=== PATIENT | female | born 1980 | race Hispanic/Latino ===

== ENCOUNTER 2017-11-06 20:00 | Emergency (ER) | payer BC ==
[~2017-11-06] VITALS: Ht 160 cm; Wt 86.2 kg
[2017-11-06] MEDS ORDERED: KETOROLAC TROMETHAMINE 30 MG/ML VIAL IV STA (20:47)
--- NOTE | 2017-11-06 21:43 | Diagnostic Imaging Report ---
Exam: AP view of the chest Indication: Left upper quadrant pain with shortness of breath Comparison: None Findings: The lungs are clear. Normal appearance of the heart and bones. Surgical clips right upper and left upper quadrants of the abdomen. Impression: Normal chest x-ray. Signed by: Dr. Sonya Wick M.D. on 11/06/2017 9:39 PM
[2017-11-06] MEDS ORDERED: MORPHINE SULFATE 2 MG/ML SYR IV STA (22:03)
[2017-11-06] MEDS ORDERED: HYDROCODONE/APAP 5MG-325MG TAB PO ONE (22:15)
[2017-11-06] MEDS ORDERED: FENTANYL CITRATE/PF 100MCG/2 ML INJ IV ONE (23:15)
== END 2017-11-07 00:15 | disposition home or self-care (01) ==
LOC: FSED 20:00
DX: R07.89 Other chest pain (principal); R06.00 Dyspnea, unspecified
CPT/HCPCS: 71045; 80053; 81003; 81025; 82553; 84484; 85025; 85379; 99284; J1885; J2270

== ENCOUNTER 2018-08-28 22:36 | Emergency (ER) | payer BC, OTHER ==
[~2018-08-28] VITALS: Ht 160 cm; Wt 86.2 kg
--- OUTSIDE RECORDS SUMMARY | 2018-08-28 22:40 | XMS REPORT ---
Author Author Wilmer Gonzalez Organization [employer] Address Unknown Phone Unavailable Care Team Providers Care Preparer Name Role Phone Wilmer Gonzalez CP Unavailable Allergies No Known Allergies Problems Problem Type Condition Code Onset Dates Condition Status Problem Rheumatoid factor positive R76.8 Active Problem Joint pain M25.50 Active Problem Vitamin D deficiency E55.9 Active Medications No Known Medications Results No Known Results Summary Purpose [employer] Submission
--- OUTSIDE RECORDS SUMMARY | 2018-08-28 22:40 | XMS REPORT | Continuity of Care Document ---
Author Author [employer] Address Unknown Phone Unavailable Care Team Providers Care Continuous Crusher Operator Name Role Phone [employer] Information [employer] Unavailable Unavailable Problems Problem Status Onset Date Classification Date Reported Comments Source Rheumatoid factor positive Active Problem 06/01/2018 Abe Gonzalez Joint pain Active Problem 06/01/2018 Abe Gonzalez Vitamin D deficiency Active Problem 06/01/2018 Abe Gonzalez Medications Medication Details Route Status Patient Instructions Ordering Provider Order Date Source Ergocalciferol 1 capsule Orally Active 94690 UNIT Orally Once a week Gwendolyn 05/28/2018 Abe Gonzalez Meloxicam 1 tablet Orally Active 15 MG Orally Once a day Gwendolyn 05/28/2018 Abe Gonzalez Allergies, Adverse Reactions, Alerts Substance Category Reaction Severity Reaction type Status Date Reported Comments Source Morphine ITCH Intermediate Allergy to Substance Active 11/06/2017 [facility] tylenol-codiene Adverse Reaction itching Adverse Reaction Active 05/28/2018 Abe Gonzalez Immunizations No Data Provided for This Section Results No Data Provided for This Section Pathology Reports No Data Provided for This Section Diagnostic Reports No Data Provided for This Section Consultation Notes No Data Provided for This Section Discharge Summaries No Data Provided for This Section History and Physicals No Data Provided for This Section Vital Signs Vital Sign Value Date Comments Source Weight 204.1 05/28/2018 Abe Gonzalez Height 63 05/28/2018 Abe Gonzalez Temperature Oral (F) 97.1 F 05/28/2018 Abe Gonzalez Heart Rate 76 05/28/2018 Abe Gonzalez Diastolic (mm Hg) 80 05/28/2018 Abe Gonzalez Systolic (mm Hg) 122 05/28/2018 Abe Gonzalez Encounters Location Location Details Encounter Type Encounter Number Reason For Visit Attending Provider ADM Date DC Date Status Source Departed Emergency Room [id number] IMMANUEL LUO MD 11/06/2017 11/07/2017 [facility] Procedures No Data Provided for This Section Assessment and Plan No Data Provided for This Section Plan of Care Plan of Care Date Source Discharge Date 11/07/17 12:15am Disposition HOME, SELF-CARE Condition at Discharge Stable Instructions/Education Provided Chest Pain - Chest Wall Forms Provided Work/School Excuse Prescriptions See Medication Section Referrals CHAD HERNÁNDEZ MD Order Date: Call for an appointment Address: [address] [phone] Note: Follow up in 1 week Additional Instructions/Education Return to ER if you have worsening chest pain, worsening shortness of breath, fever, abdominal pain, vomiting 11/07/2017 [facility] Social History Social History Date Source Smoking Status Start Date Stop Date Never Smoker 11/07/2017 [facility] Family History No Data Provided for This Section Advance Directives Order Name Results Value Date Source Advance Directives Advance Directives Directive Response Recorded Date/Time Does the patient have an advance directive? No 07/28/14 12:19am If yes, is advance directive on file with [facility]? No 07/28/14 12:19am If not on file with [facility] will patient provide a copy? No 07/28/14 12:19am Do you have a Directive to Physician? No 11/06/17 10:40pm Do you have a Medical Power of [employer] Member Other Ranks? Yes 11/06/17 10:40pm Do you have an out of hospital Do Not Resuscitate Order? No 11/06/17 10:40pm Do you have any special needs we should be aware of? No 11/06/17 10:40pm Do you have a support person here with you today? No 11/06/17 10:40pm Did patient receive Notice of Privacy Practices? Yes 11/06/17 10:40pm Did patient receive patient rights and responsibilities? Yes 11/06/17 10:40pm 11/07/2017 [facility] Functional Status No Data Provided for This Section
--- OUTSIDE RECORDS SUMMARY | 2018-08-28 22:40 | XMS REPORT ---
Author Author Elliott Snow Organization [employer] Address Unknown Phone Unavailable Care Team Providers Care Cotton Gin Yard Supervisor Name Role Phone Elliott Snow CP Unavailable Allergies No Known Allergies Problems Problem Type Condition Code Onset Dates Condition Status Problem Rheumatoid factor positive R76.8 Active Problem Joint pain M25.50 Active Problem Vitamin D deficiency E55.9 Active Medications No Known Medications Results No Known Results Summary Purpose [employer] Submission
--- OUTSIDE RECORDS SUMMARY | 2018-08-28 22:40 | XMS REPORT ---
Author Author Elliott Snow [facility] [employer] Address Unknown Phone Unavailable Care Team Providers Care [place] Name Role Phone Elliott Snow CP Unavailable Allergies, Adverse Reactions, Alerts Substance Reaction Event Type tylenol-codiene itching Non Drug Allergy Problems Problem Type Condition Code Onset Dates Condition Status Problem Rheumatoid factor positive R76.8 Active Problem Joint pain M25.50 Active Problem Vitamin D deficiency E55.9 Active Assessment Rheumatoid factor positive R76.8 Active Assessment Vitamin D deficiency E55.9 Active Assessment Joint pain M25.50 Active Medications Medication Code System Code Instructions Start Date End Date Status Dosage Ergocalciferol [facility] 70710693096 73790 UNIT Orally Once a week May 28, 2018 August 26, 2018 Active 1 capsule Meloxicam [facility] 41260610287 15 MG Orally Once a day May 28, 2018 Active 1 tablet Vital Signs Date/Time: May 28, 2018 BMI 36.15 Index Weight 204.1 lbs Height 63 in Temperature 97.1 F Cardiac Monitoring Heart Rate 76 /min Blood Pressure Diastolic 80 mm Hg Blood Pressure Systolic 122 mm Hg Results No Known Results Summary Purpose [employer] Submission
[2018-08-28] MEDS ORDERED: ASPIRIN 325 MG TAB PO ONE (23:00)
--- NOTE | 2018-08-29 00:22 | Diagnostic Imaging Report ---
EXAMINATION: CXR 2 VIEW - HOPD INDICATION: Chest pain, left-sided COMPARISON: None FINDINGS: TUBES and LINES: None. LUNGS: Lungs are well inflated. Lungs are clear. There is no evidence of pneumonia or pulmonary edema. PLEURA: No pleural effusion or pneumothorax. HEART AND MEDIASTINUM: The cardiomediastinal silhouette is unremarkable. BONES AND SOFT TISSUES: No acute osseous lesion. Soft tissues are unremarkable. UPPER ABDOMEN: No free air under the diaphragm. Surgical clips in the left upper abdomen. IMPRESSION: No acute thoracic abnormality. Signed by: Bhavin Joseph DO on 08/29/2018 12:19 AM
[2018-08-29] MEDS ORDERED: KETOROLAC TROMETHAMINE 30 MG/ML VIAL ONE (03:32)
[2018-08-29 06:08] VITALS: BP 116/73
== END 2018-08-29 06:21 | disposition home or self-care (01) ==
LOC: FSED 22:36
DX: R07.89 Other chest pain (principal); R06.00 Dyspnea, unspecified; Z82.49 Family history of ischemic heart disease and other diseases of the circulatory system
CPT/HCPCS: 71046; 80053; 81025; 82553; 84484; 85025; 85379; 93005; 99284; J1885

== ENCOUNTER 2018-09-04 22:51 | Emergency (ER) | payer BC, OTHER ==
[~2018-09-04] VITALS: Ht 160 cm; Wt 86.2 kg
--- OUTSIDE RECORDS SUMMARY | 2018-09-04 22:53 | XMS REPORT | Continuity of Care Document ---
Author Author [employer] Address Unknown Phone Unavailable Care Team Providers Care Engineering Project Manager Name Role Phone [employer] Information [employer] Unavailable Unavailable Problems Problem Status Onset Date Classification Date Reported Comments Source Rheumatoid factor positive Active Problem 06/01/2018 Abe Gonzalez Joint pain Active Problem 06/01/2018 Abe Gonzalez Vitamin D deficiency Active Problem 06/01/2018 Abe Gonzalez Medications Medication Details Route Status Patient Instructions Ordering Provider Order Date Source Ergocalciferol 1 capsule Orally Active 01009 UNIT Orally Once a week Gwendolyn 05/28/2018 Abe Gonzalez Meloxicam 1 tablet Orally Active 15 MG Orally Once a day Gwendolyn 05/28/2018 Abe Gonzalez Allergies, Adverse Reactions, Alerts Substance Category Reaction Severity Reaction type Status Date Reported Comments Source Morphine ITCH Intermediate Allergy to Substance Active 11/06/2017 [facility] tylenol-codiene Adverse Reaction itching Adverse [...] DC Date Status Source Departed Emergency Room [id number] IMMANUEL LUO MD 11/06/2017 11/07/2017 [facility] Procedures No Data Provided for This Section Assessment and Plan No Data Provided for This Section Plan of Care Plan of Care Date Source Discharge Date 11/07/17 12:15am Disposition HOME, SELF-CARE Condition at Discharge Stable Instructions/Education Provided Chest Pain - Chest Wall Forms Provided Work/School Excuse Prescriptions See Medication Section Referrals CHAD HERNÁNDEZ MD Order Date: Call for an appointment Address: [address] [phone] Note: Follow up in 1 week Additional Instructions/Education Return to ER if you have worsening chest pain, worsening shortness of breath, fever, abdominal pain, vomiting 11/07/2017 [facility] Social History Social History Date Source Smoking Status Start Date Stop Date Never Smoker 11/07/2017 [facility] Family History No Data Provided for This Section Advance Directives Order Name Results Value Date Source Advance Directives Advance Directives Directive Response Recorded Date/Time Does the patient have an advance directive? No 07/28/14 12:19am If yes, is advance directive on file with [facility]? No 07/28/14 12:19am If not on file with [facility] will patient provide a copy? No 07/28/14 12:19am Do you have a Directive to Physician? No 11/06/17 10:40pm Do you have a Medical Power of Silk Screen Etcher? Yes 11/06/17 10:40pm Do you have an [...] rights and responsibilities? Yes 11/06/17 10:40pm 11/07/2017 [facility] Functional Status No Data Provided for This Section
[2018-09-04] MEDS ORDERED: KETOROLAC TROMETHAMINE 30 MG/ML VIAL IV STA (23:04)
[2018-09-04 23:14] LABS: BASOPHILS # (AUTO) 0.1 (0.0-0.1); BASOPHILS % 0.6 % (0.0-1.0); EOSINOPHILS # (AUTO) 0.3 (0.0-0.4); EOSINOPHILS % 3.2 % (0.0-6.0); HEMATOCRIT 29.9 % (34.2-44.1); HEMOGLOBIN 10.1 g/dL (12.0-16.0); LYMPHOCYTES # (AUTO) 3.1 (1.0-3.2); MEAN CORPUSCULAR HEMOGLOBIN 28.3 pg (28-32); MEAN CORPUSCULAR HGB CONC 33.8 g/dL (31-35); MEAN CORPUSCULAR VOLUME 83.8 fL (81-99); MONOCYTES # (AUTO) 0.5 (0.2-0.8); MONOCYTES % 5.6 % (4.4-11.3); NEUTROPHILS # (AUTO) 4.7 (2.1-6.9); NEUTROPHILS % 54.4 % (38.7-80.0); PLATELET COUNT 332 x10e3/uL (140-360); RED BLOOD COUNT 3.57 x10e6/uL (3.6-5.1); RED CELL DISTRIBUTION WIDTH 13.9 % (11.7-14.4)
[2018-09-04 23:35] LABS: ALANINE AMINOTRANSFERASE 16 IU/L (0-55); ALBUMIN 3.8 g/dL (3.5-5.0); ALBUMIN/GLOBULIN RATIO 1.1 (0.8-2.0); ALKALINE PHOSPHATASE 56 IU/L (40-150); ANION GAP 16.6 mmol/L (8-16); BLOOD UREA NITROGEN 16 mg/dL (7-26); BUN/CREATININE RATIO 20 (6-25); CALCIUM 9.5 mg/dL (8.4-10.2); CARBON DIOXIDE 23 mmol/L (22-29); CHLORIDE 106 mmol/L (98-107); CREATINE KINASE 156 IU/L (29-168); CREATININE, SERUM 0.79 mg/dL (0.57-1.11); EST GLOMERULAR FILTRATION RATE > 60 ML/MIN (60-); GLUCOSE 92 mg/dL (74-118); POTASSIUM 3.6 mmol/L (3.5-5.1); SODIUM 142 mmol/L (136-145)
[2018-09-04 23:42] LABS: BILIRUBIN,URINE NEGATIVE (NEGATIVE); CLARITY,URINE CLEAR (CLEAR); COLOR,URINE YELLOW (YELLOW); KETONES,URINE NEGATIVE (NEGATIVE); LEUKOCYTE ESTERASE ,URINE NEGATIVE (NEGATIVE); NITRITE,URINE NEGATIVE (NEGATIVE); PROTEIN,URINE DIPSTICK NEGATIVE (NEGATIVE); URINE UROBILINOGEN 0.2 mg/dL (0.2 - 1)
[2018-09-04 23:54] LABS: BACTERIA,URINE FEW /HPF; EPITHELIAL CELLS,URINE FEW /LPF; MUCUS,URINE MANY (RARE); RBC,URINE 0-5 /HPF (0-5); WBC,URINE (MAN) 0-5 /HPF (0-5)
--- NOTE | 2018-09-05 00:27 | Diagnostic Imaging Report ---
A single frontal view of the chest. HISTORY: Chest pain COMPARISON: Chest radiograph November 06, 2017 DISCUSSION: Portable technique, limits sensitivity of the exam. Soft tissue attenuation partially limits sensitivity of the exam. Overlying monitoring leads. Tubes/Lines: None Lungs and pleura: The lungs are well inflated. No evidence of a consolidative pneumonia or pulmonary alveolar edema. No definite pleural effusion or pneumothorax is identified. Heart and mediastinum: The cardiomediastinal silhouette appears unremarkable. Bones and soft tissues: Appear unremarkable, given this limited exam. IMPRESSION: 1. No acute radiographic abnormality. 2. No significant interval change. Signed by: Dr. Braxton Suárez D.O., M.M.M. on 09/05/2018 12:24 AM
[2018-09-05 01:11] VITALS: BP 128/76
== END 2018-09-05 01:19 | disposition home or self-care (01) ==
LOC: ER 22:51
DX: R07.89 Other chest pain (principal); F41.9 Anxiety disorder, unspecified; F43.10 Post-traumatic stress disorder, unspecified; Z87.19 Personal history of other diseases of the digestive system
CPT/HCPCS: 36415; 71045; 80053; 81001; 82550; 82553; 84484; 85025; 85379; 93005; 96374; 99284; J1885

== ENCOUNTER → 2018-09-16 | Outpatient (CLI) | payer OTHER ==
[2018-09-16 14:23] LABS: BLOOD UREA NITROGEN 14 mg/dL (7-26); BUN/CREATININE RATIO 19 (6-25); CREATININE, SERUM 0.72 mg/dL (0.57-1.11); EST GLOMERULAR FILTRATION RATE > 60 ML/MIN (60-)
--- NOTE | 2018-09-16 15:15 | Diagnostic Imaging Report ---
EXAM: CT Chest WITH contrast- Pulmonary Embolism Protocol INDICATION: Chest pain, swelling. Concern for PE. COMPARISON: Chest radiograph 09/04/2018 TECHNIQUE: Chest was scanned utilizing a multidetector helical scanner from the lung apex through the level of the diaphragm after administration of IV contrast. Thin section reconstructions were obtained with special concentration on the pulmonary arteries. Coronal and sagittal reformations were obtained. Pulmonary embolism protocol was performed. IV CONTRAST: 100 cc of Isovue 370 RADIATION DOSE: Total DLP: 545.7 mGy*cm Dose modulation, iterative reconstruction, and/or weight based adjustment of the mA/kV was utilized to reduce the radiation dose to as low as reasonably achievable. COMPLICATIONS: None FINDINGS: LINES/ TUBES: None. PULMONARY ARTERIES: No filling defect is identified within the pulmonary arteries to the segmental level. The subsegmental pulmonary arteries are not well opacified. LUNGS AND AIRWAYS: The central airways are patent. Minimal bibasilar dependent subsegmental atelectasis. 5 mm right upper lobe nodule (series 3 image 18). No focal consolidation or pulmonary edema. PLEURA: The pleural spaces are clear. HEART AND MEDIASTINUM: The thyroid gland appears unremarkable but is partially obscured by beam hardening artifact related to the contrast bolus. No supraclavicular, mediastinal, hilar, axillary, subpectoral, or internal mammary lymphadenopathy. The heart is not enlarged. No evidence of right heart strain. The main pulmonary artery measures up to 2.9 cm. No pericardial effusion. UPPER ABDOMEN: Limited images of the upper abdomen demonstrate no visible abnormality in the partially visualized liver, spleen, adrenals, pancreas, or upper kidneys. Status post cholecystostomy. BONES: The visualized bony thorax is within normal limits. SOFT TISSUES: Unremarkable. IMPRESSION: No pulmonary embolism. No acute cardiopulmonary process. 5 mm right upper lobe pulmonary nodule. If the patient is low risk, no further follow-up is needed. If the patient is high risk, CT in 12 months is optional per Fleischner society guidelines 2017. Signed by: Sharon Wise MD on 09/16/2018 3:12 PM
== END ==
LOC: CT 13:48
PROVIDERS: ATTEND Internal Medicine
DX: R07.9 Chest pain, unspecified (principal)
CPT/HCPCS: 36415; 71260; 82565; 84520

== ENCOUNTER 2020-11-13 18:35 | Emergency (ER) | payer BC, OTHER ==
[~2020-11-13] VITALS: Ht 160 cm; Wt 99.8 kg
[2020-11-13] MEDS ORDERED: SODIUM CHLORIDE 0.9% 1000ML 1,000 ML IV STA (18:51)
[2020-11-13] MEDS ORDERED: FAMOTIDINE 20 MG/2 ML VIAL IV ONE ×2 (19:00→19:21)
[2020-11-13] MEDS ORDERED: ONDANSETRON HCL INJ 2MG/ML 2ML 2 MG/ML VIAL IV ONE (19:00)
[2020-11-13] MEDS ORDERED: KETOROLAC TROMETHAMINE 30 MG/ML VIAL IV ONE (19:00)
[2020-11-13] MEDS ORDERED: KETOROLAC TROMETHAMINE 30 MG/ML VIAL ONE (19:21)
[2020-11-13] MEDS ORDERED: SODIUM CHLORIDE 0.9% 1000ML 1,000 ML ONE (19:21)
[2020-11-13] MEDS ORDERED: ONDANSETRON HCL INJ 2MG/ML 2ML 2 MG/ML VIAL ONE (19:21)
[2020-11-13] MEDS ORDERED: SODIUM CHLORIDE 0.9% 50ML 50 ML ONE (19:39)
[2020-11-13] MEDS ORDERED: IOPAMIDOL 370 MG/ML 200 ML INFUS..BTL INJ ONE (19:40)
[2020-11-13] MEDS ORDERED: ZOFRAN4 MG PO (20:37)
[2020-11-13] MEDS ORDERED: OMEPRAZOLE20 M2 PO (20:37)
[2020-11-13 20:55] VITALS: BP 118/71
== END 2020-11-13 20:55 | disposition home or self-care (01) ==
LOC: FSED 19:05
DX: R10.31 Right lower quadrant pain (principal); R11.0 Nausea; K29.70 Gastritis, unspecified, without bleeding; N80.9 Endometriosis, unspecified; K44.9 Diaphragmatic hernia without obstruction or gangrene; F43.10 Post-traumatic stress disorder, unspecified
CPT/HCPCS: 74177; 80053; 81003; 85025; 96374; 96375; 96376; 99284; J1885; J2405; J7030; Q9967